=== PATIENT | female | born 1980 | race Caucasian/White ===

== ENCOUNTER → 2018-06-16 | Outpatient (CLI) | payer MEDICAID ==
[~2018-06-16] MED LIST: GADOBUTROL 7.5 MMOL/7.5 ML PFS ONE; OMNIPAQUE 350 MG/ML, 100ML BOTTLE ONE
== END | disposition home or self-care (01) ==
LOC: CFH 12:22
PROVIDERS: ATTEND Family Medicine
DX: H53.2 Diplopia (principal)
CPT/HCPCS: 70460; 70543; A9585; Q9967